=== PATIENT | female | born 1950 | race Caucasian/White ===

== ENCOUNTER 2024-01-16 12:06 | Outpatient (CLI) | payer MEDICARE, SELFPAY | END 2024-01-16 12:07 | disposition home or self-care (01) | LOC: NFLDREF 01-18 11:18 | PROVIDERS: Visit Provider Physician Assistant | DX: N39.0 Urinary tract infection, site not specified (principal); B96.89 Other specified bacterial agents as the cause of diseases classified elsewhere | CPT/HCPCS: 87086; 87186 ==